=== PATIENT | female | born 1950 | race Caucasian/White ===

== ENCOUNTER → 2016-10-13 10:39 | Outpatient (CLI) | payer MEDICARE ==
[2016-09-08 09:44] VITALS: BMI 29.6
[~2016-10-13 10:39] MED LIST: ACIDOPHILUS-PE1 EACH PO; ARGININE500 MG PO; ASCORBIC ACID500 MG PO; BACTRIM DS TABL1 TAB PO; CENTRUM COMPLE1 EACH PO; COUMADIN10 MG PO; COUMADIN2.5 MG PO; COUMADIN5 MG PO; CYCLOBENZAPRINE10 MG PO; FISH OIL 1,0001 CA1 PO; FLOMAX0.4 MG PO; GLUCOVANCE 5/501 TAB PO; HYDROCODON-ACE1 EAC7 PO; JANUVIA100 MG PO; KEPPRA500 MG PO; LANTUS INSULIN10 ML SQ; LEVAQUIN500 MG PO; LEVAQUIN750 MG PO; LIPITOR10 MG PO; LYRICA75 MG PO; METOPROLOL TAR100 M1 PO; MOBIC7.5 MG PO; NEXIUM40 MG PO; OXYCODONE HCL5 MG PO; PAXIL20 MG PO; PREDNISONE10 MG PO; PROTONIX40 MG PO; SANTYL30 GM TP; SENOKOT-S TABLE1 TAB PO; THERAGRAN M [BK1 TAB PO; ULTRAM50 MG PO; VITAMIN D31000 UNI2 PO; ZINC-220220 MG PO; ZOFRAN4 MG PO
== END | disposition home or self-care (01) ==
LOC: D.RAD 10:39
DX: M54.12 Radiculopathy, cervical region (principal)

== ENCOUNTER 2016-10-14 14:00 | Emergency (ER) | payer MEDICARE ==
[2016-09-08 09:44] VITALS: BMI 29.6
== END 2016-10-14 18:19 | disposition home or self-care (01) ==
LOC: D.ER 14:00
DX: R51 Headache (principal); M54.2 Cervicalgia; G89.29 Other chronic pain; W18.30XA Fall on same level, unspecified, initial encounter; Y92.129 Unspecified place in nursing home as the place of occurrence of the external cause; E11.9 Type 2 diabetes mellitus without complications

== ENCOUNTER → 2016-10-16 13:10 | Outpatient (CLI) | payer MEDICARE ==
[2016-09-08 09:44] VITALS: BMI 29.6
== END | disposition home or self-care (01) ==
LOC: D.CT 13:00
DX: R42 Dizziness and giddiness (principal)

== ENCOUNTER 2018-12-27 17:09 | Emergency (ER) | payer MEDICARE ==
[~2018-12-27] VITALS: Ht 180.3 cm; Wt 113.6 kg
[2018-12-27 17:11] VITALS: Ht 180.3 cm; Wt 113.6 kg
[2018-12-27 20:59] VITALS: BP 161/86
== END 2018-12-27 20:59 | disposition home or self-care (01) ==
LOC: EDSEX 17:09 → D.ER 17:09
DX: S46.001A Unspecified injury of muscle(s) and tendon(s) of the rotator cuff of right shoulder, initial encounter (principal); W18.11XA Fall from or off toilet without subsequent striking against object, initial encounter; Y93.89 Activity, other specified; Y92.019 Unspecified place in single-family (private) house as the place of occurrence of the external cause

== ENCOUNTER 2019-01-10 14:13 | Emergency (ER) | payer MEDICARE ==
[~2019-01-10] VITALS: Ht 180.3 cm; Wt 105.5 kg
[2019-01-10 14:17] VITALS: Ht 180.3 cm; Wt 105.5 kg
[2019-01-10] MEDS ORDERED: ASPIRIN EC81 M1 PO (14:39)
[2019-01-10] MEDS ORDERED: FLUTICASONE PRO16 GM NASAL (14:40)
[2019-01-10] MEDS ORDERED: GLUCAGEN1 MG/VIAL IM (14:41)
[2019-01-10] MEDS ORDERED: HUMALOG 30100 UNITS/ SC (14:41)
[2019-01-10] MEDS ORDERED: LASIX40 MG PO (14:42)
[2019-01-10] MEDS ORDERED: LINZESS145 MCG PO (14:43)
[2019-01-10] MEDS ORDERED: IMODIUM2 MG PO (14:43)
[2019-01-10] MEDS ORDERED: METOPROLOL TART50 MG PO (14:44)
[2019-01-10] MEDS ORDERED: MIRALAX17 GM PO (14:46)
[2019-01-10] MEDS ORDERED: MILK OF MAGNESI30 ML PO (14:46)
[2019-01-10] MEDS ORDERED: NEURONTIN 300300 MG PO (14:47)
[2019-01-10] MEDS ORDERED: HYDROCODON-ACE1 EA10 PO ×2 (14:50)
[2019-01-10] MEDS ORDERED: K-TAB10 MEQ PO (14:55)
[2019-01-10] MEDS ORDERED: ZANAFLEX2 M1 PO (15:00)
[2019-01-10] MEDS ORDERED: TRADJENTA5 MG PO (15:00)
[2019-01-10] MEDS ORDERED: WELLBUTRIN SR150 MG PO (15:03)
[2019-01-10] MEDS ORDERED: VOLTAREN100 GM TOPICAL (15:03)
[2019-01-10] MEDS ORDERED: RANITIDINE HCL150 M1 PO (15:03)
[2019-01-10 18:11] VITALS: BP 138/77
== END 2019-01-10 21:18 | disposition home or self-care (01) ==
LOC: D.ER 14:13
DX: M25.511 Pain in right shoulder (principal); M54.2 Cervicalgia

== ENCOUNTER → 2019-01-18 15:01 | Outpatient (CLI) | payer MEDICARE ==
[2019-01-10 14:17] VITALS: BMI 32.4
[~2019-01-18 15:01] MED LIST changes: +ASPIRIN EC81 M1 PO; +FLUTICASONE PRO16 GM NASAL; +GLUCAGEN1 MG/VIAL IM; +HUMALOG 30100 UNITS/ SC; +HYDROCODON-ACE1 EA10 PO; +IMODIUM2 MG PO; +K-TAB10 MEQ PO; +LASIX40 MG PO; +LINZESS145 MCG PO; +METOPROLOL TART50 MG PO; +MILK OF MAGNESI30 ML PO; +MIRALAX17 GM PO; +NEURONTIN 300300 MG PO; +RANITIDINE HCL150 M1 PO; +TRADJENTA5 MG PO; +VOLTAREN100 GM TOPICAL; +WELLBUTRIN SR150 MG PO; +ZANAFLEX2 M1 PO
== END | disposition home or self-care (01) ==
LOC: D.MRI 15:01
PROVIDERS: ATTEND Legal Medicine
DX: M25.511 Pain in right shoulder (principal)

== ENCOUNTER 2020-05-26 18:14 | Inpatient (IN) | payer MEDICARE ==
[~2020-05-26] VITALS: Ht 180.3 cm; Wt 106.1 kg
[2020-05-26 19:37] VITALS: BP 95/53
[2020-05-26 19:41] LABS: BASOPHILS 0.1 % (0-2); EOSINOPHILS 0.1 % (0-7); HEMATOCRIT 39.8 % (42.0-54.0); HEMOGLOBIN 12.9 g/dL (13.5-17.5); IMMATURE GRANULOCYTES 0.7 % (0-5); LYMPHOCYTES 3.2 % (15-50); MCH 30.9 pg (26.0-34.0); MCHC 32.4 g/dL (31.0-37.0); MCV 95.2 fL (80.0-100.0); MEAN PLATELET VOLUME 9.5 fL (7.4-10.4); MONOCYTES 6.8 % (2-11); NEUTROPHILS 89.1 % (40-80); PLATELET COUNT 146 10x3/uL (130-400); RBC 4.18 10x6/uL (4.20-6.10); RDW 13.5 % (11.5-14.5); WBC 18.8 10x3/uL (4.8-10.8)
[2020-05-26 19:48] LABS: APTT 31.2 SECONDS (22.8-39.4); INR 1.01 (0.85-1.17); PROTIME 13.2 SECONDS (11.6-15.0)
[2020-05-26 19:50] LABS: CALC OSMOLALITY 283 mosm/kg (275-300); CALCIUM 8.4 mg/dL (8.5-10.1); CARBON DIOXIDE 27.2 mmol/L (21.0-32.0); CHLORIDE - SERUM 103 mmol/L (98-107); CREATININE - SERUM 1.6 mg/dL (0.6-1.3); GLUCOSE 260 mg/dL (74-106); POTASSIUM - SERUM 4.3 mmol/L (3.5-5.1); SODIUM 137 mmol/L (136-145); UREA NITROGEN 16 mg/dL (7-18); eGFR NON AFRICAN AMERICAN 46 mL/min (90-120)
[2020-05-26 20:07] LABS: ALBUMIN 2.9 g/dL (3.4-5.0); ALKALINE PHOSPHATASE 93 U/L (30-120); ALT (SGPT) 25 U/L (10-68); BILIRUBIN - TOTAL 0.47 mg/dL (0.2-1.3); CKMB 0.7 U/L (0.0-3.6); CREATINE KINASE 97 UL (21-232); PRO BNP 877 pg/mL (0-125); PROTEIN - SERUM 6.7 g/dL (6.4-8.2); TROPONIN-I 0.051 ng/mL (0.000-0.060)
[2020-05-26 20:37] VITALS: BP 98/50
[2020-05-26 21:35] VITALS: BP 104/80
[2020-05-26 22:36] VITALS: BP 127/66
[2020-05-27] VITALS (24 sets, daily range): BP systolic 98–144; BP diastolic 56–99; Ht 180.3 cm; Wt 106.1 kg
[2020-05-27 04:55] LABS: BASOPHILS 0.2 % (0-2); EOSINOPHILS 0 % (0-7); HEMATOCRIT 40.3 % (42.0-54.0); HEMOGLOBIN 13.3 g/dL (13.5-17.5); IMMATURE GRANULOCYTES 4.2 % (0-5); MCH 32.5 pg (26.0-34.0); MEAN PLATELET VOLUME 11.5 fL (7.4-10.4); NEUTROPHILS 86.6 % (40-80); RBC 4.09 10x6/uL (4.20-6.10); RDW 13.5 % (11.5-14.5)
[2020-05-27 04:56] LABS: MCV 98.5 fL (80.0-100.0); PLATELET COUNT 193 10x3/uL (130-400); WBC 9.6 10x3/uL (4.8-10.8)
[2020-05-27 09:22] LABS: ALBUMIN 2.6 g/dL (3.4-5.0); ALKALINE PHOSPHATASE 98 U/L (30-120); BILIRUBIN - TOTAL 0.48 mg/dL (0.2-1.3); CALCIUM 8.2 mg/dL (8.5-10.1); CHLORIDE - SERUM 108 mmol/L (98-107); CKMB 3.1 U/L (0.0-3.6); CREATINE KINASE 76 UL (21-232); POTASSIUM - SERUM 4.6 mmol/L (3.5-5.1); PROTEIN - SERUM 7.2 g/dL (6.4-8.2); SODIUM 140 mmol/L (136-145); TROPONIN-I 0.025 ng/mL (0.000-0.060)
[2020-05-27 09:23] LABS: ALT (SGPT) 101 U/L (10-68); CALC OSMOLALITY 305 mosm/kg (275-300); CARBON DIOXIDE 18.4 mmol/L (21.0-32.0); CREATININE - SERUM 3.9 mg/dL (0.6-1.3); GLUCOSE 169 mg/dL (74-106); UREA NITROGEN 77 mg/dL (7-18); eGFR NON AFRICAN AMERICAN 16 mL/min (90-120)
--- NOTE | 2020-05-27 12:24 | NUR ---
PT NEGATIVE FOR COVID. TAKEN OUT OF DROPLET PRECAUTIONS. UPDATED PT.
[2020-05-28] VITALS (19 sets, daily range): BP systolic 72–144; BP diastolic 45–101
[2020-05-28 04:45] LABS: BASOPHILS 0.1 % (0-2); EOSINOPHILS 0 % (0-7); HEMATOCRIT 38.5 % (42.0-54.0); HEMOGLOBIN 12.6 g/dL (13.5-17.5); IMMATURE GRANULOCYTES 0.2 % (0-5); LYMPHOCYTES 7.3 % (15-50); MCH 30.5 pg (26.0-34.0); MCHC 32.7 g/dL (31.0-37.0); MONOCYTES 7.7 % (2-11); NEUTROPHILS 84.7 % (40-80); PLATELET COUNT 178 10x3/uL (130-400); RBC 4.13 10x6/uL (4.20-6.10); RDW 13.6 % (11.5-14.5)
[2020-05-28 04:52] LABS: MCV 93.2 fL (80.0-100.0); WBC 17.8 10x3/uL (4.8-10.8)
[2020-05-28 04:59] LABS: ANION GAP 9.5 mmol/L (8-16); CALCIUM 8.2 mg/dL (8.5-10.1); POTASSIUM - SERUM 4.2 mmol/L (3.5-5.1)
[2020-05-28 05:06] LABS: CARBON DIOXIDE 29.7 mmol/L (21.0-32.0); CREATININE - SERUM 1.4 mg/dL (0.6-1.3)
--- NOTE | 2020-05-28 07:10 | NUR ---
REPORT RECEIVED SEAM STAY STITCHER AND PATIENT CARE ASSUMED. PATIENT LAYING IN BED ON BACK DROWSY AND ORIENTED X 4. PATIENT IS STABLE AND VSS. PATIENT DENIES ANY NEEDS OR PAIN. SR UPNX 2 BED IN LOW POSITION AND CALL LIGHT IN REACH.
--- NOTE | 2020-05-28 22:30 | NUR ---
1900 bedside report received. PT. A&O X4, SITTING UP IN BED EYES OPEN. NO COMPLAINTS AT THIS TIME, CALL LIGHT IN REACH, WILL CONTINUE TO MONITOR
[2020-05-29] VITALS (16 sets, daily range): BP systolic 91–166; BP diastolic 50–94
--- NOTE | 2020-05-29 03:03 | NUR ---
2100 PT.ACCEPTED MEDS WITHOUT COMPLICATIONS. REQUESTED PAIN MEDICATION FOR CHRONIC PAIN IN HIS NECK. WILL CONTINUE TO MONITOR
--- NOTE | 2020-05-29 03:05 | NUR ---
2300 PT. REPORTS PAIN MEDICATION HELPED RELIEVE PAIN. SITTING UP IN BED WATCHING TV AT THIS TIME. NO CHANGES NOTED. WILL CONTINUE TO MONITOR
--- NOTE | 2020-05-29 03:07 | NUR ---
0100 NO CHANGES NOTED AT THIS TIME
[2020-05-29 04:57] LABS: BASOPHILS 0.2 % (0-2); EOSINOPHILS 1.6 % (0-7); HEMOGLOBIN 12.6 g/dL (13.5-17.5); IMMATURE GRANULOCYTES 0.5 % (0-5); LYMPHOCYTES 13.9 % (15-50); MCH 30.6 pg (26.0-34.0); MCHC 32.3 g/dL (31.0-37.0); MCV 94.7 fL (80.0-100.0); MONOCYTES 7.6 % (2-11); NEUTROPHILS 76.2 % (40-80); PLATELET COUNT 180 10x3/uL (130-400); RBC 4.12 10x6/uL (4.20-6.10); RDW 13.8 % (11.5-14.5)
[2020-05-29 05:10] LABS: WBC 10.9 10x3/uL (4.8-10.8)
[2020-05-29 05:17] LABS: ANION GAP 7.8 mmol/L (8-16); CALCIUM 7.8 mg/dL (8.5-10.1); CARBON DIOXIDE 31.3 mmol/L (21.0-32.0); CREATININE - SERUM 1.5 mg/dL (0.6-1.3); POTASSIUM - SERUM 4.1 mmol/L (3.5-5.1)
--- NOTE | 2020-05-29 06:21 | NUR ---
pt. sitting in bed watching tv. no complaints at this time
--- NOTE | 2020-05-29 06:29 | NUR ---
CALLED PHARMACY TO ORDER LINZESS. PHARMACY WILL GET IT TO ICU LAWANDA.
--- NOTE | 2020-05-29 07:51 | NUR ---
Nutrition follow-up: Diet: ADA consistent CHO PO intake 50-75% of meals Labs reviewed; Glucose elevated Covid-; out of isolation Wt: 241# PO intake good at this time RDN following.
--- NOTE | 2020-05-29 17:07 | NUR ---
RECEIVED PT FROM ICU. PT IS AAO AND BEDFAST. CALL LIGHT W/I REACH. FALL PRECAUTIONS IN PLACE. PIV SALINE LOCKED. RR EVEN AND UNLABORED ON RA. NO S/S OF DISTRESS NOTED. WILL CTM.
--- NOTE | 2020-05-29 17:16 | MORECARE ---
CASE MANAGEMENT DISCHARGE SUMMARY PATIENT: KAYLEE HARPER UNIT: [id number] ADM DATE: 05/26/20 AGE: 70 : 50 SEX: M ROOM/BED: D.2127 AUTHOR: BG GARCIA PHYSICIAN: REFERRING PHYSICIAN: DANIEL BERNAL MD DATE OF SERVICE: 05/29/20 Discharge Plan Patient Name: KAYLEE HARPER [facility] : 1950 Planned Disposition: Anticipated Discharge Date: Discharge Date: Expected LOS: Initial Reviewer: [email or web address] Initial Review Date: 05/26/2020 Generated: 05/29/20 6:16 pm Comments DCP- Discharge Planning Updated by [email or web address]: Nichole Montiel on 05/29/20 4:[address] Patient is a resident of [facility]/rehab ([phone]). PCP: Dr. Brand. Patient Name: KAYLEE HARPER Page 13247 at 1716 All edits/amendments must be made on the electronic document DICTATION DATE: 05/29/201715 MORTICIAN HELPER: SHADI 05/29/201715 RPT#: [id number] DC DATE: STATUS: ADM IN [facility] [address] [place] [address] END OF REPORT
--- NOTE | 2020-05-29 18:19 | MORECARE ---
CASE MANAGEMENT DISCHARGE SUMMARY PATIENT: KAYLEE HARPER UNIT: [id number] ADM DATE: 05/26/20 AGE: 70 : 50 SEX: M ROOM/BED: D.2127 AUTHOR: BG GARCIA PHYSICIAN: REFERRING PHYSICIAN: DANIEL BERNAL MD DATE OF SERVICE: 05/29/20 Discharge Plan Patient Name: KAYLEE HARPER [facility] [facility] 1950 Planned Disposition: Anticipated Discharge Date: Discharge Date: Expected LOS: Initial Reviewer: [email or web address] Initial Review Date: 05/26/2020 Generated: 05/29/20 7:18 pm Comments DCP- Discharge Planning Updated by [email or web address]: Nichole Montiel on 05/29/20 4:[address] Patient is a resident of [facility]/rehab ([phone]). PCP: Dr. Brand. Last DP export: 05/29/20 4:16 p Patient Name: KAYLEE HARPER Page 98302 at 1819 All edits/amendments must be made on the electronic document DICTATION DATE: 05/29/201817 HOT PLATE PLYWOOD PRESS LABORER: SHADI 05/29/201817 RPT#: [id number] DC DATE: STATUS: ADM IN [facility] [address] [place] [address] END OF REPORT
[2020-05-30 04:00] VITALS: BP 130/71
[2020-05-30 07:07] LABS: BASOPHILS 0.3 % (0-2); EOSINOPHILS 2.4 % (0-7); HEMATOCRIT 40.1 % (42.0-54.0); HEMOGLOBIN 12.9 g/dL (13.5-17.5); IMMATURE GRANULOCYTES 0.9 % (0-5); LYMPHOCYTES 16.2 % (15-50); MCH 30.2 pg (26.0-34.0); MCHC 32.2 g/dL (31.0-37.0); MCV 93.9 fL (80.0-100.0); MONOCYTES 9.3 % (2-11); NEUTROPHILS 70.9 % (40-80); PLATELET COUNT 172 10x3/uL (130-400); RBC 4.27 10x6/uL (4.20-6.10); RDW 13.7 % (11.5-14.5); WBC 9.7 10x3/uL (4.8-10.8)
[2020-05-30 07:12] LABS: ANION GAP 8.3 mmol/L (8-16); CALCIUM 8.4 mg/dL (8.5-10.1); CREATININE - SERUM 1.2 mg/dL (0.6-1.3); POTASSIUM - SERUM 4.3 mmol/L (3.5-5.1)
[2020-05-30 08:10] VITALS: BP 152/86
--- NOTE | 2020-05-30 11:14 | MORECARE ---
CASE MANAGEMENT DISCHARGE SUMMARY PATIENT: KAYLEE HARPER UNIT: [id number] ADM DATE: 05/26/20 AGE: 70 : 50 SEX: M ROOM/BED: D.2127 AUTHOR: BG GARCIA PHYSICIAN: REFERRING PHYSICIAN: DANIEL BERNAL MD DATE OF SERVICE: 05/30/20 Discharge Plan Patient Name: KAYLEE HARPER Facility: [facility]:[place] : 1950 Planned Disposition: Anticipated Discharge Date: Discharge Date: Expected LOS: Initial Reviewer: [id number] Initial Review Date: 05/26/2020 Generated: 05/30/20 12:13 pm Comments DCP- Discharge Planning Updated by [id number]: Nichole Montiel on 05/29/20 4:[address] Patient is a resident of [facility]/rehab ([phone]). PCP: Dr. Brand. External Providers External Provider: [facility] Next Contact Date: Service Request Date: Service Type: Resolution: Reviewer: Comments: Last DP export: 05/29/20 5:19 p Patient Name: KAYLEE HARPER Page 55904 at 1114 All edits/amendments must be made on the electronic document DICTATION DATE: 05/30/20 1113 FORM CARPENTER: SHADI 05/30/20 1113 RPT#: [id number] DC DATE: STATUS: ADM IN [facility] [address] [place] [address] END OF REPORT
--- NOTE | 2020-05-30 11:34 | MORECARE ---
CASE MANAGEMENT DISCHARGE SUMMARY PATIENT: KACI HARPER UNIT: [id number] ADM DATE: 05/26/20 AGE: 70 : 50 SEX: M ROOM/BED: D.2227 AUTHOR: BG GARCIA PHYSICIAN: REFERRING PHYSICIAN: DANIEL BERNAL MD DATE OF SERVICE: 05/30/20 Discharge Plan Patient Name: KACI HARPER Facility: [facility] : 1950 Planned Disposition: Anticipated Discharge Date: Discharge Date: Expected LOS: Initial Reviewer: [id number] Initial Review Date: 05/26/2020 Generated: 05/30/20 12:33 pm Comments DCP- Discharge Planning Updated by [email or web address]: Nichole Montiel on 05/30/20 10:[address] CM contacted [facility], with [facility]/Rehab ([phone]), regarding DC today. CM faxed requested information to [phone]. [place] will arrange van transportation. PCP: Dr. Brand. Emergency contact: Maria Antonia Junior (daughter) [phone], Yamil Terry (nephew) [phone]. DME: Scooter at the facility. Patient denies any needs at this time. DC IMM signed. DCP- Discharge Planning Updated by [email or web address]: Nichole Montiel on 05/29/20 4:[address] [phone] PCP: Dr. Brand. Coverage Notice Reviewer: [id number] - Nichole Montiel Notice Issued Date-Time: 05/30/2020 11:31 Notice Type: IM Discharge Notice Notice Delivered To: Patient Relationship to Patient: Self Biodiesel Plant Superintendent Name: Kaci Harper Delivery Method: HAND - Hand Delivered Tierra Days: Prior Verbal Notification: Recipient Understood Notice: Yes Recipient Signature: Yes Med Rec Note Co-signed by Attending: Coverage Notice Comment: DC IMM signed by patient and placed in his DC packet . Original to chart. Last DP export: 05/30/20 10:14 a Patient Name: KACI HARPER Page 65120 at 1134 All edits/amendments must be made on the electronic document DICTATION DATE: 05/30/20 113 TV HOST: SHADI 05/30/20 1133 RPT#: [id number] DC DATE: STATUS: ADM IN [facility] [address] [place] [address] END OF REPORT
--- NOTE | 2020-05-30 11:42 | MORECARE ---
CASE MANAGEMENT DISCHARGE SUMMARY PATIENT: KACI HARPER UNIT: [id number] ADM DATE: 05/26/20 AGE: 70 : 50 SEX: M ROOM/BED: D.5867 AUTHOR: JOSE,DOC PHYSICIAN: REFERRING PHYSICIAN: DANIEL BERNAL MD DATE OF SERVICE: 05/30/20 Discharge Plan Patient Name: KACI HARPER Facility: [facility]:[place] : 1950 Planned Disposition: Assisted Facility Anticipated Discharge Date: 05/30/20 Discharge Date: Expected LOS: 4 Initial Reviewer: [id number] Initial Review Date: 05/26/2020 Generated: 05/30/20 12:41 pm Comments DCP- Discharge Planning Updated by [id number]: Nichole Montiel on 05/30/20 10:[address] CM contacted [facility], [facility][phone][facility] regarding DC today. CM faxed requested information to [phone]. [place] will arrange van transportation. PCP: Dr. Brand. Emergency contact: Maria Antonia Junior (daughter) [phone], Yamil Terry (nephew) [phone]. DME: Scooter at the facility. Patient denies any needs at this time. DC IMM signed. DCP- Discharge Planning Updated by [email or web address]: Nichole Montiel on 05/29/20 4:[address] Patient is a resident of [facility] ([phone]). PCP: Dr. Brand. DCPIA - Discharge Planning Initial Assessment Updated by [email or web address]: Nichole Montiel on 05/30/20 11:38 am * Is the patient Alert and Oriented? Yes * How many steps to enter\exit or inside your home? * PCP Dr. Brand * Pharmacy [place] * Preadmission Environment Assisted Facility * [facility] * ADLs Partial Dependent * Partial ADLs (Assistance needed) Medication Management Transfers * Equipment Power Chair or Electric Scooter * Verbal permission to speak to the caregivers and representatives has been obtained from the patient. Yes * Community resources currently utilized None * Additional services required to return to the preadmission environment? No * Can the patient safely return to the preadmission environment? Yes * Has this patient been hospitalized within the prior 30 days at any hospital? No Coverage Notice Reviewer: [email or web address] Sarath Montiel Notice Issued Date-Time: 05/30/2020 11:31 Notice Type: IM Discharge Notice Notice Delivered To: Patient Relationship to Patient: Self Editor & Co Founder Name: Kaci Haprer Delivery Method: HAND - Hand Delivered Tirera Days: Prior Verbal Notification: Recipient Understood Notice: Yes Recipient Signature: Yes Med Rec Note Co-signed by Attending: Coverage Notice Comment: DC IMM signed by patient and placed in his DC packet . Original to chart. Last DP export: 05/30/20 10:34 a Patient Name: KACI HARPER Page 22992 at 1142 All edits/amendments must be made on the electronic document DICTATION DATE: 05/30/20 1141 AGRICULTURE TECHNICIAN: SHADI 05/30/20 1141 RPT#: [id number] DC DATE: STATUS: ADM IN [facility] [address] [place] [address] END OF REPORT
--- NOTE | 2020-05-30 12:27 | MORECARE ---
CASE MANAGEMENT DISCHARGE SUMMARY PATIENT: KACI HARPER UNIT: [id number] ADM DATE: 05/26/20 AGE: 70 : 50 SEX: M ROOM/BED: D.0567 AUTHOR: JOSE,DOC PHYSICIAN: REFERRING PHYSICIAN: DANIEL BERNAL MD DATE OF SERVICE: 05/30/20 Discharge Plan Patient Name: KACI HARPER Facility: [facility]:[place] : 1950 Planned Disposition: Custodial Facility Anticipated Discharge Date: 05/30/20 Discharge Date: Expected LOS: 4 Initial Reviewer: [email or web address] Initial Review Date: 05/26/2020 Generated: 05/30/20 1:27 pm Comments DCP- Discharge Planning Updated by [email or web address]: Nichole Montiel on 05/30/20 10:[address] CM contacted [facility], [facility][phone][facility] regarding DC today. CM faxed requested information to [phone]. [place] will arrange van transportation. PCP: Dr. Brand. Emergency contact: Maria Antonia Junior (daughter) [phone], Yamil Terry (nephew) [phone]. DME: Scooter at the facility. Patient denies any needs at this time. DC IMM signed. DCP- Discharge Planning Updated by [email or web address]: Nichole Montiel on 05/29/20 4:[address] Patient is a resident of [facility] ([phone]). PCP: Dr. Brand. DCPIA - Discharge Planning Initial Assessment Updated by [email or web address]: Nichole Montiel on 05/30/20 11:38 am * Is the patient Alert and Oriented? Yes * How many steps to enter\exit or inside your home? * PCP Dr. Brand * Pharmacy [place] * Preadmission Environment Custodial Facility * [facility] * ADLs Partial Dependent * Partial ADLs (Assistance needed) Medication Management Transfers * Equipment Power Chair or Electric Scooter * Verbal permission to speak to the caregivers and representatives has been obtained from the patient. Yes * Community resources currently utilized None * Additional services required to return to the preadmission environment? No * Can the patient safely return to the preadmission environment? Yes * Has this patient been hospitalized within the prior 30 days at any hospital? No Coverage Notice Reviewer: [email or web address] Sarath Montiel Notice Issued Date-Time: 05/30/2020 11:31 Notice Type: IM Discharge Notice Notice Delivered To: Patient Relationship to Patient: Self Process Lead Name: Kaci Harper Delivery Method: HAND - Hand Delivered Tierra Days: Prior Verbal Notification: Recipient Understood Notice: Yes Recipient Signature: Yes Med Rec Note Co-signed by Attending: Coverage Notice Comment: DC IMM signed by patient and placed in his DC packet . Original to chart. Last DP export: 05/30/20 10:42 a Patient Name: KACI HARPER Page 12301 at 1227 All edits/amendments must be made on the electronic document DICTATION DATE: 05/30/20 1227 MAGAZINE EDITOR: SHADI 05/30/20 1227 RPT#: [id number] DC DATE: STATUS: ADM IN [facility] [address] [place] [address] END OF REPORT
--- NOTE | 2020-05-30 14:53 | MORECARE ---
CASE MANAGEMENT DISCHARGE SUMMARY PATIENT: KACI HARPER UNIT: [id number] ADM DATE: 05/26/20 AGE: 70 : 50 SEX: M ROOM/BED: D.2307 AUTHOR: JOSE,DOC PHYSICIAN: REFERRING PHYSICIAN: DANIEL BERNAL MD DATE OF SERVICE: 05/30/20 Discharge Plan Patient Name: KACI HARPER Facility: [facility]:[place] : 1950 Planned Disposition: Custodial Facility Anticipated Discharge Date: 05/31/20 Discharge Date: Expected LOS: 5 Initial Reviewer: [id number] Initial Review Date: 05/26/2020 Generated: 05/30/20 3:52 pm Comments DCP- Discharge Planning Updated by [email or web address]: Nichole Montiel on 05/30/20 10:[address] CM contacted [facility], [facility] ([phone]), regarding DC today. CM faxed requested information to [phone]. [place] will arrange van transportation. PCP: Dr. Brand. Emergency contact: Maria Antonia Junior (daughter) [phone], Yamil Terry (nephew) [phone]. DME: Scooter at the facility. Patient denies any needs at this time. DC IMM signed. DCP- Discharge Planning Updated by [email or web address]: Nichole Montiel on 05/29/20 4:[address] Patient is a resident of [facility] ([phone]). PCP: Dr. Brand. DCPIA - Discharge Planning Initial Assessment Updated by [email or web address]: Nichole Montiel on 05/30/20 11:38 am * Is the patient Alert and Oriented? Yes * How many steps to enter\exit or inside your home? * PCP Dr. Brand * Pharmacy [place] * Preadmission Environment Custodial Facility * [facility] * ADLs Partial Dependent * Partial ADLs (Assistance needed) Medication Management Transfers * Equipment Power Chair or Electric Scooter * Verbal permission to speak to the caregivers and representatives has been obtained from the patient. Yes * Community resources currently utilized None * Additional services required to return to the preadmission environment? No * Can the patient safely return to the preadmission environment? Yes * Has this patient been hospitalized within the prior 30 days at any hospital? No Coverage Notice Reviewer: [id number] Sarath Montiel Notice Issued Date-Time: 05/30/2020 11:31 Notice Type: IM Discharge Notice Notice Delivered To: Patient Relationship to Patient: Self Named Account Executive Name: Kaci Harper Delivery Method: HAND - Hand Delivered Tierra Days: Prior Verbal Notification: Recipient Understood Notice: Yes Recipient Signature: Yes Med Rec Note Co-signed by Attending: Coverage Notice Comment: DC IMM signed by patient and placed in his DC packet . Original to chart. Last DP export: 05/30/20 11:27 a Patient Name: KACI HARPER Page 88598 at 1453 All edits/amendments must be made on the electronic document DICTATION DATE: 05/30/201451 BORING MACHINE OPERATOR PRODUCTION: SHADI 05/30/20 145 RPT#: [id number] DC DATE: STATUS: ADM IN [place] [address] [place] [address] END OF REPORT
[2020-05-30 15:29] VITALS: BP 135/78
--- NOTE | 2020-05-30 19:00 | NUR ---
PT ALERT AND ORIENTED. HE DENIES PAIN OR NEEDS. VSS. ASSISTED HIM TO HIS RIGHT SIDE FOR COMFORT. HE DENIES PAIN OR NEEDS. BED IS LOW AND CALL LIGHT IN REACH.
[2020-05-30 21:35] VITALS: BP 134/85
[2020-05-31] VITALS: BP 155/68
[2020-05-31 04:00] VITALS: BP 136/69
[2020-05-31 08:24] VITALS: BP 145/81
[2020-05-31 11:44] VITALS: BP 139/83
--- NOTE | 2020-05-31 12:19 | MORECARE ---
CASE MANAGEMENT DISCHARGE SUMMARY PATIENT: KACI HARPER UNIT: [id number] ADM DATE: 05/26/20 AGE: 70 : 50 SEX: M ROOM/BED: D.3863 AUTHOR: JOSEDOC PHYSICIAN: REFERRING PHYSICIAN: DANIEL BERNAL MD DATE OF SERVICE: 05/31/20 Discharge Plan Patient Name: KACI HARPER Facility: [facility]:[place] : 1950 Planned Disposition: Half-Way Facility Anticipated Discharge Date: 05/31/20 Discharge Date: Expected LOS: 5 Initial Reviewer: [email or web address] Initial Review Date: 05/26/2020 Generated: 05/31/20 1:19 pm Comments DCP- Discharge Planning Updated by [email or web address]: Karlene Chavez on 05/31/20 11:[address] Patient Name: KACI HARPER Encounter No: [id number] : 1950 Primary Insurance: MEDICARE A & B Anticipated DC Date: 05-31-2020 Planned Disposition: Half-Way Facility External Planned Provider: : DCP follow-up note: CM called Chris at [facility] at [phone] about the second negative Covid result. CM faxed DC and covid results. The patient will return to a skilled MCR bed to room 109B. Nursing can call report to Selena at [phone]. Patient\family notified of anticipated dc time. [facility] phone number and contact information given to patient \family. Patient will be transported by [facility] [place]. The estimated arrival time of transport will be 1 PM. Karlene Chavez DCP- Discharge Planning Updated by [id number]: Nichole Montiel on 05/30/20 10:[address] CM contacted [place], with [facility] ([phone]), regarding DC today. CM faxed requested information to [phone]. [facility] will arrange van transportation. PCP: Dr. Brand. Emergency contact: Maria Antonia Junior (daughter) [phone], Yamil Terry (nephew) [phone]. DME: Scooter at the facility. Patient denies any needs at this time. DC IMM signed. DCP- Discharge Planning Updated by [email or web address]: Nichole Montiel on 05/29/20 4:[address] Patient is a resident of [facility] ([phone]). PCP: Dr. Brand. DCPIA - Discharge Planning Initial Assessment Updated by [id number]: Nichole Montiel on 05/30/20 11:38 am * Is the patient Alert and Oriented? Yes * How many steps to enter\exit or inside your home? * PCP Dr. Brand * Pharmacy [place] * Preadmission Environment Half-Way Facility * Facility Name [facility]/rehab * ADLs Partial Dependent * Partial ADLs (Assistance needed) Medication Management Transfers * Equipment Power Chair or Electric Scooter * Verbal permission to speak to the caregivers and representatives has been obtained from the patient. Yes * Community resources currently utilized None * Additional services required to return to the preadmission environment? No * Can the patient safely return to the preadmission environment? Yes * Has this patient been hospitalized within the prior 30 days at any hospital? No Coverage Notice Reviewer: [id number] - Nichole Montiel Notice Issued Date-Time: 05/30/2020 11:31 Notice Type: IM Discharge Notice Notice Delivered To: Patient Relationship to Patient: Self Road Equipment Operator Name: Kaci Harper Delivery Method: HAND - Hand Delivered Tierra Days: Prior Verbal Notification: Recipient Understood Notice: Yes Recipient Signature: Yes Med Rec Note Co-signed by Attending: Coverage Notice Comment: DC IMM signed by patient and placed in his DC packet . Original to chart. Last DP export: 05/30/20 1:53 p Patient Name: KACI HARPER Page 37286 at 1219 All edits/amendments must be made on the electronic document DICTATION DATE: 05/31/20 1219 CONTROL CLERK FOOD AND BEVERAGE: SHADI 05/31/20 1219 RPT#: [id number] DC DATE: STATUS: [facility] [address] [place] [address] END OF REPORT
--- NOTE | 2020-05-31 13:55 | NUR ---
PT ASSISTED TO WHEELCHAIR FOR TRANSPORT HOME. IV REMOVED. DISCHARGE PAPERS SIGNED. PACKET SENT WITH PT TO [place].
--- NOTE | 2020-06-02 02:18 | NUR ---
LATE ENTRY: [facility] 1G STARTED 05/26/20 AT 2210 FINISHED INFUSING @ 2240. 1G INFUSED.
--- NOTE | 2020-06-03 07:58 | MORECARE ---
CASE MANAGEMENT DISCHARGE SUMMARY PATIENT: KACI HARPER UNIT: [id number] ADM DATE: 05/26/20 AGE: 70 : 50 SEX: M ROOM/BED: D.1474 AUTHOR: JOSE,DOC PHYSICIAN: REFERRING PHYSICIAN: DANIEL BERNAL MD DATE OF SERVICE: 06/03/20 Discharge Plan Patient Name: KACI HARPER Facility: [facility]:[place] : 1950 Planned Disposition: Detention Facility Anticipated Discharge Date: 05/31/20 Discharge Date: 05/31/2020 Expected LOS: 5 Initial Reviewer: [email or web address] Initial Review Date: 05/26/2020 Generated: 06/03/20 8:58 am Comments DCP- Discharge Planning Updated by [email or web address]: Karlene Chavez on 05/31/20 11:[address] Patient Name: KACI HARPER Encounter No: [id number] : 1950 Primary Insurance: MEDICARE A & B Anticipated DC Date: 05-31-2020 Planned Disposition: Detention Facility External Planned Provider: : DCP follow-up note: CM called Chris at [facility] at [phone] about the second negative Covid result. CM faxed DC and covid results. The patient will return to a skilled [facility] bed to room 109B. Nursing can call report to Selena at [phone]. Patient\family notified of anticipated dc time. [facility] phone number and contact information given to patient \family. Patient will be transported by [place] [facility] [place]. The estimated arrival time of transport will be 1 PM. Karlene Chavez DCP- Discharge Planning Updated by [id number]: Nichole Montiel on 05/30/20 10:[address] CM contacted [facility], with [facility] ([phone]), regarding DC today. [place] faxed requested information to [phone]. [place] will arrange [place] transportation. PCP: Dr. Brand. Emergency contact: Maria Antonia Junior (daughter) [phone], Yamilkin Newellon (nephew) [phone]. DME: Scooter at the facility. Patient denies any needs at this time. DC IMM signed. DCP- Discharge Planning Updated by [email or web address]: Nichole Montiel on 05/29/20 4:[address] Patient is a resident of [facility] ([phone]). PCP: Dr. Brand. DCPIA - Discharge Planning Initial Assessment Updated by [email or web address]: Nichole Montiel on 05/30/20 11:38 am * Is the patient Alert and Oriented? Yes * How many steps to enter\exit or inside your home? * PCP Dr. Brand * Pharmacy [place] * Preadmission Environment Detention Facility * Facility Name [facility]/rehab * ADLs Partial Dependent * Partial ADLs (Assistance needed) Medication Management Transfers * Equipment Power Chair or Electric Scooter * Verbal permission to speak to the caregivers and representatives has been obtained from the patient. Yes * Community resources currently utilized None * Additional services required to return to the preadmission environment? No * Can the patient safely return to the preadmission environment? Yes * Has this patient been hospitalized within the prior 30 days at any hospital? No Coverage Notice Reviewer: [id number] - Nichole Montiel Notice Issued Date-Time: 05/30/2020 11:31 Notice Type: IM Discharge Notice Notice Delivered To: Patient Relationship to Patient: Self Inside Phone Sales Name: Kaci Harper Delivery Method: HAND - Hand Delivered Tierra Days: Prior Verbal Notification: Recipient Understood Notice: Yes Recipient Signature: Yes Med Rec Note Co-signed by Attending: Coverage Notice Comment: DC IMM signed by patient and placed in his DC packet . Original to chart. Last DP export: 05/31/20 11:20 a Patient Name: KACI HARPER Page 54870 at 0758 All edits/amendments must be made on the electronic document DICTATION DATE: 06/03/20 0758 URBAN REDEVELOPMENT SPECIALIST: SHADI 06/03/20 0758 RPT#: [id number] DC DATE:05/31/20 STATUS: DIS IN [facility] [address] [place] [address] END OF REPORT
== END 2020-05-31 13:57 | DRG 871 ==
LOC: D.ER 18:14 → D.ICU 21:23 → D.M2 05-29 17:05
PROVIDERS: Emergency Medicine; Family Medicine; ADMIT Legal Medicine; ATTEND Legal Medicine
DX: A41.9 Sepsis, unspecified organism (principal); J18.9 Pneumonia, unspecified organism; G93.41 Metabolic encephalopathy; N17.9 Acute kidney failure, unspecified; E11.9 Type 2 diabetes mellitus without complications; D72.829 Elevated white blood cell count, unspecified; I10 Essential (primary) hypertension; D64.9 Anemia, unspecified; K21.9 Gastro-esophageal reflux disease without esophagitis; N40.0 Benign prostatic hyperplasia without lower urinary tract symptoms

== ENCOUNTER 2020-06-19 18:51 | Emergency (ER) | payer MEDICARE ==
[~2020-06-19] VITALS: Ht 180.3 cm; Wt 109.1 kg
[2020-06-19 18:59] VITALS: Ht 180.3 cm; Wt 109.1 kg
[2020-06-19 19:57] LABS: BASOPHILS 0.3 % (0-2); EOSINOPHILS 3.3 % (0-7); HEMATOCRIT 42.4 % (42.0-54.0); HEMOGLOBIN 13.9 g/dL (13.5-17.5); IMMATURE GRANULOCYTES 0.9 % (0-5); LYMPHOCYTES 30.9 % (15-50); MCHC 32.8 g/dL (31.0-37.0); MCV 94.4 fL (80.0-100.0); MEAN PLATELET VOLUME 9.5 fL (7.4-10.4); MONOCYTES 8.2 % (2-11); NEUTROPHILS 56.4 % (40-80); PLATELET COUNT 152 10x3/uL (130-400); RBC 4.49 10x6/uL (4.20-6.10); RDW 13.6 % (11.5-14.5); WBC 8.6 10x3/uL (4.8-10.8)
[2020-06-19 20:21] LABS: APTT 31.3 SECONDS (22.8-39.4); INR 0.9 (0.85-1.17); PROTIME 12.1 SECONDS (11.6-15.0)
[2020-06-19 20:48] LABS: D-DIMER-QUANTITATIVE 2.33 ug/mLFEU (0.20-0.54)
[2020-06-19 20:54] LABS: CALC OSMOLALITY 281 mosm/kg (275-300); CALCIUM 8.7 mg/dL (8.5-10.1); CARBON DIOXIDE 25.1 mmol/L (21.0-32.0); CHLORIDE - SERUM 103 mmol/L (98-107); CREATININE - SERUM 1.2 mg/dL (0.6-1.3); POTASSIUM - SERUM 5.1 mmol/L (3.5-5.1); SODIUM 136 mmol/L (136-145); UREA NITROGEN 19 mg/dL (7-18); eGFR NON AFRICAN AMERICAN 64 mL/min (90-120)
[2020-06-19 20:55] LABS: GLUCOSE 237 mg/dL (74-106)
[2020-06-19 21:18] LABS: ALBUMIN 2.9 g/dL (3.4-5.0); ALKALINE PHOSPHATASE 80 U/L (30-120); ALT (SGPT) 25 U/L (10-68); CKMB 1.7 U/L (0.0-3.6); CREATINE KINASE 72 UL (21-232); LIPASE 2366 U/L (73-393); MAGNESIUM - SERUM 1.4 mg/dL (1.8-2.4); PRO BNP 3633 pg/mL (0-125); THYROID STIMULATING HORMONE 3.28 uIU/mL (0.36-3.74); TROPONIN-I < 0.017 ng/mL (0.000-0.060)
[2020-06-20 00:32] LABS: NITRITE NEGATIVE (NEGATIVE)
[2020-06-20 00:33] LABS: BILIRUBIN NEGATIVE (NEGATIVE); KETONE NEGATIVE (NEGATIVE); UROBILINOGEN NORMAL mg/dL (< 2)
[2020-06-20 00:36] LABS: UDS - AMPHET NEGATIVE QUAL (NEGATIVE); UDS - BARB NEGATIVE QUAL (NEGATIVE); UDS - BENZO POSITIVE QUAL (NEGATIVE); UDS - COCAINE NEGATIVE QUAL (NEGATIVE); UDS - OPIATE POSITIVE QUAL (NEGATIVE); UDS - PCP NEGATIVE QUAL (NEGATIVE); UDS - THC NEGATIVE QUAL (NEGATIVE)
[2020-06-20 03:33] VITALS: BP 107/75
== END 2020-06-20 03:33 | disposition home or self-care (01) ==
LOC: D.ER 18:51
PROVIDERS: Family Medicine
DX: R00.0 Tachycardia, unspecified (principal); E11.9 Type 2 diabetes mellitus without complications; I10 Essential (primary) hypertension; Z72.0 Tobacco use; K21.9 Gastro-esophageal reflux disease without esophagitis; Z79.4 Long term (current) use of insulin